=== PATIENT | male | born 1950 | race American Indian/Alaskan Native ===

== ENCOUNTER 2018-08-22 17:28 | Emergency (ER) | payer MEDICARE, OTHER ==
[~2018-08-22] VITALS: Ht 172.7 cm; Wt 91.2 kg
[2018-08-22] MEDS ORDERED: METO25ER PO (18:03)
[2018-08-22] MEDS ORDERED: PANT40 PO (18:04)
[2018-08-22] MEDS ORDERED: FURO20 PO (18:04)
[2018-08-22] MEDS ORDERED: CHOL10002 (18:04)
[2018-08-22] MEDS ORDERED: Nitroglycerin0.4 MG SL (18:05)
[2018-08-22] MEDS ORDERED: VALA500 PO (18:05)
[2018-08-22] MEDS ORDERED: PRAV20 PO (18:05)
[2018-08-22] MEDS ORDERED: PENVK250 PO (18:05)
[2018-08-22] MEDS ORDERED: Loratadine10 MG PO (18:06)
[2018-08-22] MEDS ORDERED: METF500C PO (18:06)
[2018-08-22] MEDS ORDERED: TAMS.4ER PO (18:06)
[2018-08-22] MEDS ORDERED: TRESIBA100 UNIT/1 SQ (18:07)
[2018-08-22] MEDS ORDERED: ATOVAQUONE750 MG/5 M PO (18:07)
[2018-08-22] MEDS ORDERED: Novolog100 UNIT/2 (18:07)
[2018-08-22] MEDS ORDERED: Betimol5 ML OD (18:07)
[2018-08-22 18:29] LABS: BASOPHILS ABSOLUTE AUTO 0.04 K/mm3 (0.00-0.23); BASOPHILS PERCENT AUTO 1 % (0-2); EOSINOPHILS ABSOLUTE AUTO 0.02 K/mm3 (0.00-0.68); EOSINOPHILS PERCENT AUTO 0 % (0-6); Hematocrit 42.9 % (37.0-53.0); IMMATURE GRAN ABSOLUTE AUTO 0.02 K/mm3 (0.00-0.10); IMMATURE GRAN PERCENT AUTO 0 % (0-1); LYMPHOCYTES ABSOLUTE AUTO 4.44 K/mm3 (0.84-5.20); LYMPHOCYTES PERCENT AUTO 57 % (21-46); MONOCYTES ABSOLUTE AUTO 0.71 K/mm3 (0.16-1.47); MONOCYTES PERCENT AUTO 9 % (4-13); Mean Corpuscular HGB 31.7 pg (26.0-34.0); Mean Corpuscular HGB Conc 32.6 g/dL (31.5-36.5); Mean Corpuscular Volume 97 fL (80-100); Mean Platelet Volume 12.4 fL (9.1-12.4); NEUTROPHILS PERCENT AUTO 32 % (41-73); Platelet Count 94 K/mm3 (150-400); RDW Coefficient Variation 16.8 % (11.7-14.2); RDW Standard Deviation 60.8 fL (35.1-46.3); Red Blood Cell Count 4.42 M/mm3 (4.30-5.90); White Blood Cell Count 7.73 K/mm3 (4.00-11.30)
[2018-08-22 18:39] LABS: Troponin I 0.058 ng/mL (0.000-0.040)
[2018-08-22 18:42] LABS: Albumin, Blood 2.9 g/dL (3.4-5.0); Albumin/Globulin Ratio 0.7 (0.8-1.8); Bilirubin, Total 0.4 mg/dL (0.1-1.0); Calcium, Blood 9.2 mg/dL (8.5-10.1); Creatinine, Blood 1.35 mg/dL (0.60-1.20); Globulin, Blood 4.1 g/dL (2.2-4.0); Potassium, Blood 4.1 mmol/L (3.5-5.5)
[2018-08-22] MEDS ORDERED: BENZ100A PO (22:28)
[2018-08-22] MEDS ORDERED: LEVO750 PO (22:28)
== END 2018-08-22 23:15 | disposition home or self-care (01) ==
LOC: ER 17:28
PROVIDERS: Emergency Medicine
DX: J18.1 Lobar pneumonia, unspecified organism (principal); I48.91 Unspecified atrial fibrillation; I10 Essential (primary) hypertension; Z87.891 Personal history of nicotine dependence; Z88.8 Allergy status to other drugs, medicaments and biological substances; Z79.899 Other long term (current) drug therapy; Z79.4 Long term (current) use of insulin
CPT/HCPCS: 71260; 80053; 84484; 85025; 93005; 93010; 99284-25; Q9967